=== PATIENT | male | born 1970 | race Two or more races ===

== ENCOUNTER 2021-07-25 09:26 | Emergency (ER) | payer OTHER ==
[~2021-07-25] VITALS: Ht 170.2 cm; Wt 88.5 kg
--- NOTE | 2021-07-25 09:38 | NUR ---
TO ER BED 1, C/O ABDOMINAL PAIN, HX OF GASTRITIS, AAOX3, BREATHING EVEN AND NON LABORED, CHANGED INTO A GOWN AND CONNECTED TO MONITOR
--- NOTE | 2021-07-25 09:40 | NUR ---
SALINE LOCK ESTABLISHED, BLOOD DRAWN
--- NOTE | 2021-07-25 09:45 | NUR ---
TAKEN TO CT
[2021-07-25 10:02] LABS: BASOPHILS % (AUTO) 0.6 % (0.0-2.0); EOSINOPHILS % (AUTO) 0.2 % (0.0-6.0); HEMATOCRIT 38 % (39-51); HEMOGLOBIN 12.4 g/dL (13.5-17.5); LYMPHOCYTES # (AUTO) 0.4 K/uL (0.8-4.8); LYMPHOCYTES % (AUTO) 7.7 % (20.0-44.0); MEAN CORPUSCULAR HGB CONC 33 g/dl (31.0-36.0); MEAN CORPUSCULAR VOLUME 98 fL (80-96); MONOCYTES # (AUTO) 0.5 K/uL (0.1-1.30); MONOCYTES % (AUTO) 9.4 % (2.0-12.0); NEUTROPHILS # (AUTO) 4.2 K/uL (1.8-8.9); NEUTROPHILS % (AUTO) 82.1 % (43.0-81.0); PLATELET COUNT (AUTO) 161 K/uL (150-450); RED BLOOD CELL COUNT(AUTO) 3.84 MIL/uL (4.5-6.0); WHITE BLOOD COUNT (AUTO) 5.1 K/uL (4.3-11.0)
[2021-07-25 10:07] LABS: CHLORIDE 98 mmol/L (98-107); POTASSIUM 3.7 mmol/L (3.5-5.1); SODIUM SERUM 136 mmol/L (136-145)
[2021-07-25 10:12] LABS: CALCIUM, SERUM 8.7 mg/dL (8.5-10.1); CARBON DIOXIDE 29 mmol/L (21-32); CREATININE 0.7 mg/dL (0.6-1.3); GLUCOSE 222 mg/dL (74-106); UREA NITROGEN, BLOOD 7 mg/dL (7-18)
[2021-07-25] MEDS ORDERED: METF-440 PO (10:17)
[2021-07-25] MEDS ORDERED: FAMOTIDINE/PF INJ 20 MG/2 ML VIAL IV ONE ×2 (10:17→10:30)
[2021-07-25 10:18] LABS: ALANINE AMINOTRANSFERASE 140 U/L (12-78); ALKALINE PHOSPHATASE 93 U/L (46-116); ASPARTATE AMINOTRANSFERASE 115 U/L (15-37); BILIRUBIN,DIRECT 0.2 mg/dL (0.0-0.2); BILIRUBIN,TOTAL 0.5 mg/dL (0.2-1.0); LIPASE 182 U/L (73-393); TOTAL PROTEIN, SERUM 8.3 g/dL (6.4-8.2)
[2021-07-25] MEDS ORDERED: ONDANSETRON HCL/PF 4 MG/2 ML VIAL ONE (10:48)
[2021-07-25] MEDS ORDERED: MORPHINE SULFATE INJ 4 MG/ML DISP.SYRIN ONE (10:49)
--- NOTE | 2021-07-25 10:54 | NUR ---
US AT BEDSIDE
[2021-07-25] MEDS ORDERED: MORPHINE SULFATE INJ 10 MG/ML DISP.SYRIN IV ONE (11:00)
[2021-07-25] MEDS ORDERED: ONDANSETRON HCL/PF 4 MG/2 ML VIAL IV ONE (11:00)
--- NOTE | 2021-07-25 11:05 | NUR ---
PT SLEEPING COMFORTABLY IN BED
[2021-07-25] MEDS ORDERED: CHLO25CA22 PO (11:46)
[2021-07-25] MEDS ORDERED: ONDA4TAB5 PO (11:46)
[2021-07-25] MEDS ORDERED: CHLORDIAZEPOXIDE HCL 25 MG CAPSULE ONE (11:52)
--- NOTE | 2021-07-25 11:56 | NUR ---
IV removed. Catheter intact and site benign. Pressure and 4x4 applied to site. No bleeding noted.Patient discharged to home in stable condition. Written and verbal after care instructions given. Patient verbalizes understanding of instruction.
[2021-07-25] MEDS ORDERED: CHLORDIAZEPOXIDE HCL 25 MG CAPSULE PO ONE (12:00)
[2021-07-25 12:07] VITALS: BP 130/80
== END 2021-07-25 12:08 | disposition home or self-care (01) ==
LOC: ER 09:33
DX: R10.84 Generalized abdominal pain (principal); F10.239 Alcohol dependence with withdrawal, unspecified; E11.9 Type 2 diabetes mellitus without complications; Z79.84 Long term (current) use of oral hypoglycemic drugs; Y90.9 Presence of alcohol in blood, level not specified
CPT/HCPCS: 36415; 74176; 76705; 80048; 80076; 83690; 84484; 85025; 93005; 96374; 96375; 99285; J2270; J2405; J3490